=== PATIENT | male | born 1985 | race Caucasian/White ===

== ENCOUNTER 2017-01-27 18:01 | Emergency (ER) | payer OTHER ==
[2017-01-27 19:04] LABS: BILIRUBIN NEGATIVE (NEGATIVE); BLOOD 3+ Ery/uL (NEGATIVE); CLARITY HAZY (CLEAR); COLOR YELLOW (YELLOW); GLUCOSE (U) NORMAL (NORMAL); KETONE (U) NEGATIVE (NEGATIVE); LEUKOCYTES NEGATIVE Leu/uL (NEGATIVE); NITRITE NEGATIVE (NEGATIVE); PROTEIN NEGATIVE (NEGATIVE); SPECIFIC GRAVITY 1.015 (1.001-1.030); UROBILINOGEN 0.2 mg/dL (0.2-1.0)
[2017-01-27 19:11] LABS: AMORPHOUS URATES CRYSTALS MODERATE; BACTERIA TRACE; MUCOUS MODERATE
[2017-01-27 20:00] LABS: EOSINOPHIL 1.3 % (0-5); HCT 45.4 % (42.0-52.0); HGB 15.5 g/dl (13.2-18.0); LYMPHOCYTE 35.3 % (15-48); MCH 30.5 pg (25.0-31.0); MCHC 34.1 g/dL (32.0-36.0); MCV 89.4 fL (78.0-100.0); MONOCYTE 8.9 % (0-12); MPV 8.7 fL (6.0-9.5); NEUTROPHIL 53.5 % (41-80); PLT 266 K/uL (150-400); RBC 5.08 M/uL (4.70-6.00); RDW 13.1 % (11.5-14.0); WBC 7.2 K/uL (4.0-10.5)
[2017-01-27 20:20] LABS: ALBUMIN 4.3 g/dL (3.5-5.0); BILIRUBIN - TOTAL 0.5 mg/dL (0.1-1.0); CREATININE 0.9 mg/dL (0.7-1.2); GLOBULIN (CALCULATION) 2.5 g/dL (2.2-4.2); POTASSIUM 3.7 mmol/L (3.5-5.1); TOTAL PROTEIN 6.8 g/dL (6.4-8.3)
== END 2017-01-27 22:27 | disposition home or self-care (01) ==
LOC: FER 18:01
PROVIDERS: Emergency Medicine
DX: N30.00 Acute cystitis without hematuria (principal); F17.210 Nicotine dependence, cigarettes, uncomplicated
CPT/HCPCS: 36415; 80053; 81001; 85025; J1885; J2405

== ENCOUNTER 2017-01-31 13:17 | Emergency (ER) | payer OTHER | END 2017-01-31 16:19 | disposition home or self-care (01) | LOC: FER 13:17 | DX: R21 Rash and other nonspecific skin eruption (principal) | CPT/HCPCS: 99282 ==